=== PATIENT | female | born 1965 | race Two or more races ===

== ENCOUNTER 2025-03-04 14:11 | Outpatient (CLI) | payer MEDICAID | END 2025-03-04 17:00 | disposition home or self-care (01) | LOC: Rad HDHVI 14:11 | PROVIDERS: ATTEND Internal Medicine Cardiovascular Disease | DX: I07.1 Rheumatic tricuspid insufficiency (principal); R06.02 Shortness of breath | CPT/HCPCS: 93306 ==

== ENCOUNTER 2025-03-06 13:54 | Outpatient (CLI) | payer MEDICAID ==
[~2025-03-06] VITALS: Ht 167.6 cm; Wt 113.4 kg
[2025-03-06] MEDS ORDERED: ADENOSINE 90 MG/30 ML INJ IV ONE (14:27)
[2025-03-06] MEDS ORDERED: ADENOSINE 95 MG in GIVE UN-DILUTED 0 ML IV ONE (17:45)
== END 2025-03-06 17:00 | disposition home or self-care (01) ==
LOC: Rad HDHVI 13:54
PROVIDERS: ATTEND Internal Medicine Cardiovascular Disease
DX: I10 Essential (primary) hypertension (principal); E11.9 Type 2 diabetes mellitus without complications; E78.00 Pure hypercholesterolemia, unspecified; R07.89 Other chest pain; R00.2 Palpitations; R06.02 Shortness of breath; Z82.49 Family history of ischemic heart disease and other diseases of the circulatory system
CPT/HCPCS: 78452; 93017; A9500; J0153

== ENCOUNTER 2025-05-16 08:31 | Day surgery (SDC) | payer MEDICAID ==
[2025-05-14 10:38] LABS: Hematocrit 36.1 % (36.0-46.0); Hemoglobin 11.8 g/dL (12.2-16.2); Mean Corpuscular Hemoglobin 27.0 pg (28.0-32.0); Mean Corpuscular Volume 82.8 fL (80.0-100.0); Nucleated Red Blood Cells % 0.0 %
[2025-05-14 10:51] LABS: INR 0.97 (0.9-1.15); Partial Thromboplastin Time 25.1 SEC (24.5-34.5); Prothrombin Time 10.3 sec (9.3-11.8)
[2025-05-14 10:57] LABS: Alanine Aminotransferase 21 U/L (7-40); Albumin 4.2 g/dL (3.2-4.8); Alkaline Phosphatase 113 U/L (46-116); Anion Gap 10 (5-15); BUN/Creatinine Ratio 19.4 (10.0-20.0); Blood Urea Nitrogen 12 mg/dL (9-23); Calcium 9.1 mg/dL (8.7-10.4); Carbon Dioxide 23 mmol/L (20-31); Potassium 4.2 mmol/L (3.5-5.1); Sodium 142 mmol/L (136-145); Total Protein 6.5 g/dL (5.7-8.2)
[2025-05-14 10:58] LABS: Bilirubin, Total 0.4 mg/dL (0.2-1.0)
[2025-05-14 11:02] LABS: Chloride 109 mmol/L (98-107); Glucose 202 mg/dL (74-106)
[2025-05-14 11:09] LABS: Urine Amorphous Crystal MOD /hpf (None Seen); Urine Protein, UAD TRACE (Negative)
[~2025-05-16] VITALS: Ht 167.6 cm; Wt 113.4 kg
[~2025-05-16 08:31] MED LIST: ASPI81CH59 PO; ATOR10TA PO; GLIM2TAB33 PO; LISI20TA56 PO; METF-372 PO
[2025-05-16] MEDS ORDERED: METOCLOPRAMIDE HCL 5MG/ml INJ 2ml VIAL IV ONE (08:32)
[2025-05-16] MEDS ORDERED: LIDOCAINE 1% INJ PF 5ML AMP ONE (09:51)
[2025-05-16] MEDS ORDERED: PROPOFOL 10 MG/ML 20 ML IV ONE (09:51)
[2025-05-16 10:35] VITALS: PULSE 64; RESP 18; TEMP 98.3
--- NOTE | 2025-05-16 10:36 | DVHHP2 ---
GI H&P Pre-Op Assessment Date: 05/16/25 Chief complaint: colon cancer screening, constipation HPI: per clinic note Past medical history: per clinic note Past surgical history: per clinic note Family history: per clinic note Physical exam: General: NAD, AAOX3 HEENT: PERRL, no scleral icterus, normal hearing, gums without lesions or bleeding, oropharynx clear without erythema or exudate. Neck: Supple without enlargement of the thyroid, or lymphadenopathy. Chest: Normal size and shape, no tenderness, lung [place] clear to auscultation and percussion, nonlabored breathing. Heart: RRR, no murmur Abdomen: non-distended, no tenderness to palpation, +BS, no hepatosplenomegaly Extremities: no edema Neurological: CN II-XII intact, sensation intact in all extremities, 5+ strength in all extremities Skin: No rashes, No jaundice Assessment: - colon cancer screening, constipation Plan: - Colonoscopy - Risks (bleeding, infection, perforation, reaction to sedation medications and cardiopulmonary arrest) and benefit of the procedure were explained to patient. Patient agrees to undergo the procedure. EITAN SWEENEY MD May 16, 2025 10:36
--- NOTE | 2025-05-16 10:37 | DVHOP2 ---
Operative Report DATE OF OPERATION: 05/16/25 PROCEDURE: Colonoscopy. PREOPERATIVE INDICATION: The patient is a 59 -year-old female undergoing colonoscopy for constipation and colon cancer screening. POSTOPERATIVE DIAGNOSES: 1. Few diffuse diverticulosis PROCEDURE PERFORMED BY: Morales Lei M.D. SCOPE: Olympus videocolonoscope. ASA CLASS: 3 PREOPERATIVE MEDICATIONS: MAC with Santos MCCLELLAN PROCEDURE IN DETAIL: After obtaining an informed consent, the patient was placed on left lateral decubitus position. She was then sedated with the above medications. A rectal examination was performed that was normal. The colonoscope was then passed through the anus into the rectosigmoid and through the descending, transverse, and ascending colon up to the cecum with visualization of the appendiceal orifice, base of the cecum and the ileocecal valve. No mass or polyp was observed. There was a few scattered diverticulosis. The colonoscope was then withdrawn. The patient tolerated the procedure well without difficulty. WITHDRAWAL TIME: 7 minutes QUALITY OF THE PREP: [place] Bowel Prep score: 6 COMPLICATIONS : None SPECIMENS: None DISPOSITION: D/C to home PLAN: 1. Repeat colonoscopy in 10 years for colon cancer screening. MORALES LEI MD May 16, 2025 10:37
--- NOTE | 2025-05-16 10:38 | DVHDS2 ---
Physician Discharge Progress N Final Diagnosis: Diverticulosis Operations or Procedures: Operations or Procedures Colonoscopy Condition on Discharge: Good Disposition: Home Discharge Instructions: Diet: Regular Activity: No Restrictions, As Tolerated Medications: Resume previous home medications Follow Up Care: Discharge Statement: "Patient was advised to return to the ER or call 911 if any headaches, dizziness, shortness of breath, chest pain, abdominal pain, bleeding, fevers, or worsening of medical condition. Patient was counseled about treatment plan, medications, possible side effects, patientverbalized understanding. All questions were answered to the best of my ability. This discharge took greater then 30 minutes in planning, reviewing documentation, counseling the patient, and discussing with other team members." EITAN SWEENEY MD May 16, 2025 10:37
[2025-05-16 10:50] VITALS: PULSE 61; RESP 18
[2025-05-16 11:00] VITALS: BP 134/81; O2SAT 95
[2025-05-16 11:05] VITALS: PULSE 61; RESP 18
[2025-05-16 11:25] VITALS: RESP 18
== END 2025-05-16 11:25 | disposition home or self-care (01) ==
LOC: GI 08:31
PROVIDERS: ATTEND Internal Medicine Gastroenterology
DX: K59.00 Constipation, unspecified (principal); K57.30 Diverticulosis of large intestine without perforation or abscess without bleeding; I10 Essential (primary) hypertension; E11.9 Type 2 diabetes mellitus without complications; E66.01 Morbid (severe) obesity due to excess calories; Z68.41 Body mass index [BMI] 40.0-44.9, adult; Z87.891 Personal history of nicotine dependence
CPT/HCPCS: 36415; 45378; 80053; 81001; 82962; 85025; 85610; 85730; J2704; J2765; J7030; 43239; 45380